=== PATIENT | female | born 1960 | race American Indian/Alaskan Native ===

== ENCOUNTER 2016-10-10 17:44 | Emergency (ER) | payer BC ==
--- NOTE | 2016-10-10 20:09 | XRay Report ---
FINAL REPORT EXAM: XR TOE(S) 2 LT HISTORY: swollen and red great toe TECHNIQUE: Three views the left great toe PRIORS: None. FINDINGS: No fracture is identified. The joint spaces are within normal limits. No focal bony lesion identified. No radiopaque foreign body seen. No evidence for cortical disruption or destructive bony change. There is soft tissue swelling of the great toe. No soft tissue gas identified. IMPRESSION: Soft tissue swelling No plain film evidence for acute osteomyelitis
[2016-10-10] MEDS ORDERED: DELTASONE PO ONE (23:48)
[2016-10-10] MEDS ORDERED: MOTRIN PO ONE (23:49)
[2016-10-10] MEDS ORDERED: ROBITUSSIN PO ONE (23:49)
--- NOTE | 2016-10-10 23:50 | Emergency Department Report ---
HPI - General Chief Complaint: Extremity Injury, Lower Time Seen by Provider: 10/10/16 23:29 - HPI HPI: Patient is a 56-year-old female who presents to ED complaining of left great toe pain times a week. Patient states pain is localized to her great toe. Patient states she does not recall injuring the toe. Patient denies fall or trauma to the toe. Patient states pain has gotten a bit worse past couple of days. Patient states she uses to podiatry's for the callus on that toe. Patient states she feels the callus is getting worse. Patient rates the pain 6 out of 10 intensityat the moment and its worse it 8 out of 10 Patient denies fevers/chills/nausea/vomiting/abdominal pain/shortness of breath/ chest pain/loss of sensation to the foot or toes.. ED Past Medical Hx - Past Medical History Hx Hypertension: Yes Hx Asthma: Yes - Surgical History Additional Surgical History: hammer toe right,DVT left leg,hysterectomy,h/o staph infection in left great toe - Social History Smoking Status: Never Smoker Substance Use Type: Alcohol - Medications Home Medications: Home Medications Medication Instructions Recorded Confirmed Last Taken Type Ibuprofen [Motrin 800 MG tab] 800 mg PO TID #30 tablet 10/10/16 Unknown Rx Capsaicin [Zostrix] 1 applic TP BID #1 tube 10/11/16 Unknown Rx ED Review of Systems ROS: Stated complaint: LFT FOOT INJURY Other details as noted in HPI Constitutional: denies: chills, fever Eyes: denies: eye pain, eye discharge, vision change ENT: denies: ear pain, throat pain, dental pain, hearing loss, epistaxis, congestion Respiratory: denies: cough, shortness of breath, wheezing Cardiovascular: denies: chest pain, palpitations Endocrine: no symptoms reported Gastrointestinal: denies: abdominal pain, nausea, vomiting, diarrhea Genitourinary: denies: urgency, dysuria, discharge Musculoskeletal: arthralgia. denies: back pain, joint swelling Skin: denies: rash, lesions Neurological: denies: headache, weakness, paresthesias Psychiatric: denies: anxiety, depression Hematological/Lymphatic: denies: easy bleeding, easy bruising Physical Exam - Physical Exam Vital Signs: Vital Signs 10/10/16 17:59 Temperature 98.6 F Pulse Rate 94 H Respiratory 18 Rate Blood Pressure 160/87 O2 Sat by Pulse 98 Oximetry Physical Exam: GENERAL: Alert and oriented x3, no apparent distress, Normal Gait, atraumatic. HEAD: Head is normocephalic and a-traumatic. EYES: Extra ocular muscles are intact. Pupils are equal, round, and reactive to light and accommodation. EARS: symetrical, atraumatic, non tender, ear canal clear and moderate cerumen, tympanic membrance non inflamed. gross auditory nml bilaterally. NOSE: Nose symetrical, Nontender,Nares appeared normal. MOUTH:Mouth is well hydrated and without lesions. Patent airways. NECK: Supple. Non edematous, No carotid bruits. No lymphadenopathy or thyromegaly. LUNGS: Symetrical with respiration, No wheezing, no rales or crackles, CTAB. HEART: S1, S2 present, regular rate and rhythm without murmur, no rubs, no gallops. ABDOMEN: No organomegaly was noted,Positive bowel sounds, soft, and non- distended. . Nontender to palpation on all Quadrants, NO CVA tenderness. EXTREMITIES/MUSCULOSKELETAL: No cyanosis, clubbing, rash, lesions or edema. Full ROM bilaterally. UE/LE Pulses 2+ bilaterally. Left B to mildly tender to palpation. Mildly erythematous. Non-edema. NEUROLOGIC: No focal Deficit, Cranial nerves II through XII are grossly intact. No loss of sensation, PSYCHIATRIC: Mood is congruent with affect, denies suicidal or homicidal ideations. SKIN: Warm and dry, No lesions, No ulceration or induration present. ED Course Vital Signs 10/10/16 17:59 Temperature 98.6 F Pulse Rate 94 H Respiratory 18 Rate Blood Pressure 160/87 O2 Sat by Pulse 98 Oximetry ED Medical Decision Making - Radiology Data Radiology results: report reviewed, image reviewed FINAL REPORT EXAM: XR TOE(S) 2 LT HISTORY: swollen and red great toe TECHNIQUE: Three views the left great toe PRIORS: None. FINDINGS: No fracture is identified. The joint spaces are within normal limits. No focal bony lesion identified. No radiopaque foreign body seen. No evidence for cortical disruption or destructive bony change. There is soft tissue swelling of the great toe. No soft tissue gas identified. IMPRESSION: Soft tissue swelling No plain film evidence for acute osteomyelitis Transcribed By: ALYCIA Dictated By: ALVINO CRONIN MD Electronically Authenticated By: ALVINO CRONIN MD Signed Date/Time: 10/10/162005 - Medical Decision Making 66-year-old female presents with great toe pain ED course: She received toradol IM for pain Discussed the patient will follow up with primary care physician. Discussed referral for podiatry's follow-up. Critical care attestation.: If time is entered above; I have spent that time in minutes in the direct care of this critically ill patient, excluding procedure time. ED Disposition Clinical Impression: Pain of left great toe Disposition: DISCHARGED TO HOME OR SELFCARE Is pt being admited?: No Does the pt Need Aspirin: No Condition: Stable Instructions: Capsaicin (On the skin), Arthralgia (ED) Prescriptions: Capsaicin [Zostrix] 1 applic TP BID #1 tube Ibuprofen [Motrin 800 MG tab] 800 mg PO TID #30 tablet Referrals: PRIMARY CARE, [Primary Care Provider] - 3-5 Days CLINT KELLY MD [Staff Physician] - 3-5 Days GAGE SOSA MD [Referring] - 3-5 Days IVANA JOE MD [Referring] - 3-5 Days JAVON JOSEPH MD [Staff Physician] - 3-5 Days Forms: Work/School Release Form Time of Disposition: 23:54
[2016-10-11] MEDS ORDERED: TORADOL IM ONE (00:15)
[2016-10-11 00:47] VITALS: BP 150/78
== END 2016-10-11 01:00 | disposition home or self-care (01) ==
LOC: ED 17:44
DX: M79.675 Pain in left toe(s) (principal); I10 Essential (primary) hypertension; J45.909 Unspecified asthma, uncomplicated
CPT/HCPCS: 73660; 96372; 99283; J1885